=== PATIENT | female | born 1970 | race Caucasian/White ===

== ENCOUNTER 2016-04-17 18:17 | Emergency (ER) | payer OTHER ==
[~2016-04-17] VITALS: Ht 160 cm; Wt 66.0 kg
[~2016-04-17 18:17] MED LIST: CLON1TAB3 PO; MTR600 PO
[2016-04-17 18:33] VITALS: TEMP 36.9; Ht 160 cm; Wt 66.0 kg
[2016-04-17] MEDS ORDERED: PROMETHAZINE HCL INJ 25 MG/ML 1 ML VIAL IM STA (19:20)
[2016-04-17] MEDS ORDERED: FENTANYL CITRATE INJ 50 MCG/1 ML 2 ML VIAL IM STA (19:20)
[2016-04-17] MEDS ORDERED: BUPR100T8 PO (19:55)
[2016-04-17] MEDS ORDERED: IBUP-1277 PO (19:55)
[2016-04-17 20:23] VITALS: BP 132/82; PULSE 56; O2SAT 92
--- NOTE | 2016-04-18 22:45 | EMERGENCY ROOM VISIT NOTE ---
ED Visit Note First contact with patient: 19:09 CHIEF COMPLAINT: Migraine headache. HISTORY OF PRESENT ILLNESS: Ms. Rowe is a 45 year-[facility] white [facility]. She reports a gradual onset of a severe migraine headache that started approximately 5 days ago. The pain is constant and it is slowly increasing in severity. This is not the worst headache of the life and is similar to previous migraines. Currently she describes the headache as a pounding/throbbing sensation over the right temporal parietal area. She rates the pain a 10/10. The pain is nonradiating. She has not identified any aggravating or alleviating factors related to her pain. She reports using ibuprofen without relief of her discomfort. Associated with her pain there is been associated light and sound sensitivity, nausea but no vomiting. She denies fever, chills, sweats, skin eruptions, skin color changes, upper respiratory tract symptoms, sinus infections, sore throat, neck pain/stiffness, back pain, recent dental work, recent dental trauma, shortness of breath, abdominal pain, difficulty speaking, difficulty hearing, vision changes, extremity weakness/numbness/tingling. Additionally she denies any recent neck or head trauma. REVIEW OF SYSTEMS: As noted above in History of Present Illness; all body systems were reviewed with the patient and found to be negative unless noted above otherwise. PAST MEDICAL HISTORY: Migraine headaches, asthma, gallbladder disease, restless leg syndrome, status post cholecystectomy. unspecified heart surgery. CURRENT MEDICATIONS: Medications Dose Route/Sig Max Daily Dose Days Date Category Dose Instructions Advil (Ibuprofen) 200 Mg Tab 200 Mg PO UD PRN 04/17/16 Reported TAKE PER PACKAGE DIRECTIONS Wellbutrin Sr (Bupropion HCl) 100 Mg Ertab 100 Mg PO QAM 04/17/16 Reported ALLERGIES TO MEDICATIONS: Acetaminophen, aspirin, propoxyphene. SOCIAL HISTORY: Patient is currently employed; she feels safe in her home environment; she admits to tobacco use and denies alcohol use. PHYSICAL EXAM: Vital Signs: Date Time Temp Pulse Resp B/P Pulse Ox O2 Delivery O2 Flow Rate FiO2 04/17/16 20:23 56 18 132/82 92 04/17/16 18:33 36.9 63 18 147/94 96 Room Air GENERAL: 45 year-old white female in moderate distress due to pain, afebrile and hemodynamically stable. Found lying in a darkened room. NEUROLOGIC: Awake, alert and oriented to person place and time. Answering questions appropriately and following commands. Cranial nerves II-XII grossly intact. No focal neurologic deficits noted. Good short-term and long-term recall. Negative pronator drift. SKIN: Warm, dry and pink. No rashes, lesions or soft tissue trauma noted. HEENT: Normocephalic, atraumatic. PERRLA. EOMI without nystagmus. Funduscopic examination was deferred due to light sensitivity. No erythema or tenderness over the frontal or maxillary sinuses. External ears are nontender. Auditory canals are pink and patent. Tympanic membranes are pearly steel with normal light reflex. Sclerae white and conjunctiva pink without drainage. Oral cavity is moist and pink. Uvula is midline and no abscesses are seen. No posterior erythema or edema. Airway patent. Speech is clear. No JVD. Trachea midline. BACK: No tenderness over the bony cervical, thoracic or lumbar spines. No tenderness throughout the paraspinous muscles. No nuchal rigidity. Full range of motion of the cervical spine. No CVA tenderness. THORAX: Lungs clear to auscultation and equal bilaterally with no wheezing, crackles, rhonchi or stridor and equal chest wall movements. HEART: Regular rate and rhythm with no murmurs, rubs or gallops. ABDOMEN: Soft and nontender with bowel sounds present in all quadrants; no rigidity, rebound tenderness, organomegaly or guarding. MUSCULOSKELETAL: Moves all extremities well on command and with purpose. All distal neurovascular statuses are intact and equal bilaterally. Normal gait. ED COURSE: Patient is assessed with history and physical examination. Patient was given 100 g of fentanyl IM and 25 mg of Phenergan IM for the pain and nausea. Patient was reassessed and subsequently reports she was pain-free upon discharge.. Patient was educated about her condition and instructed on her treatment plan; she verbalized understanding and agreement with this plan. CLINICAL IMPRESSION: Migraine headache DECISION [employer]KIN-year-old female who presents for evaluation of headache. She is afebrile, well appearing, and hemodynamically stable. She has no signs of a sinus, dental , or ear infection and no evidence of meningismus. She is neurologically intact. I do not suspect a headache to be secondary to a subarachnoid hemorrhage, meningitis, encephalitis, or intracranial mass lesion. DISPOSITION: Patient was discharged to home in stable condition accompanied by by her daughter; prior to departure she was reassessed and subjectively reported that she was pain and symptom-free. DISCHARGE INSTRUCTIONS: Rest at home, in a quiet darkened room and allow the medication to work for the pain. Continue to follow up current treatment plan prescribed by your physician for your migraine headaches. See your own doctor in follow-up this week for continued care and treatment. Return to the emergency department as needed for worsening/uncontrolled pain, fevers, abnormal neurological symptoms or any new/concerning symptoms.
== END 2016-04-17 20:25 | disposition home or self-care (01) ==
LOC: C.EDB 18:19 → C.EDD 20:25
DX: G43.909 Migraine, unspecified, not intractable, without status migrainosus (principal); J45.909 Unspecified asthma, uncomplicated; G25.81 Restless legs syndrome; Z79.899 Other long term (current) drug therapy; F17.210 Nicotine dependence, cigarettes, uncomplicated

== ENCOUNTER → 2016-10-18 | Outpatient (CLI) | payer OTHER ==
[~2016-10-18] MED LIST changes: +BUPR100T8 PO; -CLON1TAB3 PO; +IBUP-1277 PO; -MTR600 PO
== END | disposition home or self-care (01) ==
LOC: C.PAPS 09:51
PROVIDERS: ATTEND Obstetrics & Gynecology
DX: Z12.4 Encounter for screening for malignant neoplasm of cervix (principal)

== ENCOUNTER → 2016-10-18 | Outpatient (CLI) | payer OTHER | END | disposition home or self-care (01) | LOC: C.LABSPEC 17:24 | PROVIDERS: ATTEND Obstetrics & Gynecology | DX: N89.8 Other specified noninflammatory disorders of vagina (principal) ==

== ENCOUNTER → 2016-10-18 | Outpatient (CLI) | payer OTHER | END | disposition home or self-care (01) | LOC: C.LAB1850 15:49 | PROVIDERS: ATTEND Obstetrics & Gynecology | DX: N95.1 Menopausal and female climacteric states (principal) ==